=== PATIENT | male | born 1945 | race Caucasian/White ===

== ENCOUNTER 2022-10-27 13:00 | Observation (INO) | payer MEDICARE ==
--- NOTE | 2022-10-27 14:42 | ED ---
General Adult HPI - General Chief complaint: ENT Stated complaint: Pain behind ear last here 10/20 Time Seen by Provider: 10/27/22 13:35 Source: patient Mode of arrival: ambulatory Limitations: no limitations - History of Present Illness Initial comments: This is a 77-year-old male with a past medical history including diabetes and previously diagnosed a mild mastoiditis presented to the emergency department for continued pain in the right side of his head behind his ear. The patient stated that he was given oral antibiotics and did see his primary care physician one week ago without any improvement. The patient stated that he has continued pain and discomfort especially while laying down and try to go to sleep. The patient denied any fevers, chills as well as any lightheadedness or dizziness. The patient was seen in bed comfortably without any acute distress. - Related Data Home Medications Medication Instructions Recorded Confirmed Glimepiride [Amaryl] 1 mg PO AC-BRKFST 09/23/17 10/27/22 Levothyroxine Sodium [Synthroid] 50 mcg PO HS 09/23/17 10/27/22 Nateglinide [Starlix] 120 mg PO AC-LUNCH 09/23/17 10/27/22 Omeprazole 20 mg PO AC-BRKFST 09/23/17 10/27/22 Tamsulosin [Flomax] 0.4 mg PO HS 09/23/17 10/27/22 metFORMIN HCL [Glucophage] 1,000 mg PO AC-BID 09/23/17 10/27/22 Acetaminophen-Codeine 300-30mg 1 tab PO Q6H 10/27/22 10/27/22 [Tylenol w/codeine #3] Aspirin EC [Ecotrin Low Dose] 81 mg PO DAILY 10/27/22 10/27/22 Ciprofloxacin HCl [Cipro] 500 mg PO BID 10/27/22 10/27/22 Glimepiride [Amaryl] 1.5 mg PO AC-SUPPER 10/27/22 10/27/22 Nateglinide [Starlix] 60 - 120 mg PO HS PRN 10/27/22 10/27/22 Simvastatin [Zocor] 40 mg PO DAILY 10/27/22 10/27/22 Previous Rx's Medication Instructions Recorded Isosorbide Mononitrate ER [Imdur] 30 mg PO DAILY 60 Days #60 09/25/17 tab.er.24h Nitroglycerin Sl Tabs [Nitrostat] 0.4 mg SUBLINGUAL Q5M PRN 60 Days 09/25/17 #60 tab Allergies Allergy/AdvReac Type Severity Reaction Status Date / Time No Known Allergies Allergy Verified 10/27/22 15:13 Review of Systems ROS Statement: Those systems with pertinent positive or pertinent negative responses have been documented in the HPI. ROS Other: All systems not noted in ROS Statement are negative. Past Medical History Past Medical History: Coronary Artery Disease (CAD), Chest Pain / Angina, D iabetes Mellitus, GERD/Reflux, GI Bleed, Hyperlipidemia, Hypertension, Prostate Disorder, Thyroid Disorder Additional Past Medical History / Comment(s): hypothyroid,past ulcer when younger, gastritis, anemia-took iron supplements.semi retinal occlusion-had injections, glaucoma "had stents put in eyes" History of Any Multi-Drug Resistant Organisms: None Reported Past Surgical History: Heart Catheterization With Stent, Hernia Repair Additional Past Surgical History / Comment(s): lipoma removal from his back, rt inguinal hernia repair, several heart caths total 2 stents. pt stated "radial approach attempted bilaterally but unable to get thru d/t his vessels being very crooked. groin sites were successfull. ingrid cataracts removed-lens implants, colonoscopy/egd Past Anesthesia/Blood Transfusion Reactions: No Reported Reaction Date of Last Stent Placement:: 2015 Past Psychological History: No Psychological Hx Reported Smoking Status: Never smoker Past Alcohol Use History: None Reported Past Drug Use History: None Reported - Past Family History Father Family Medical History: Cancer, Hypertension, Prostate Disorder Additional Family Medical History / Comment(s): prostate cancer mets to bone Mother Family Medical History: Coronary Artery Disease (CAD), Myocardial Infarction ([place]), Thyroid Disorder Additional Family Medical History / Comment(s): cardiac stents General Exam Limitations: no limitations General appearance: alert, in no apparent distress Head exam: Present: atraumatic, normocephalic, normal inspection Eye exam: Present: normal appearance, PERRL Pupils: Present: normal accommodation ENT exam: Present: normal exam, normal oropharynx, mucous membranes moist, other (Mild tenderness to palpation of the right mastoid process) Neck exam: Present: normal inspection, full ROM Respiratory exam: Present: normal lung sounds bilaterally Cardiovascular Exam: Present: regular rate, normal rhythm, normal heart sounds GI/Abdominal exam: Present: soft, normal bowel sounds Extremities exam: Present: normal inspection, full ROM Back exam: Present: normal inspection, full ROM Neurological exam: Present: alert, oriented X3, CN II-XII intact Psychiatric exam: Present: normal affect, normal mood Skin exam: Present: warm, dry Course Vital Signs 10/27/22 13:05 Temperature 97.6 F Pulse Rate 92 Respiratory 18 Rate Blood Pressure 185/83 O2 Sat by Pulse 99 Oximetry Medical Decision Making - Medical Decision Making Was pt. sent in by a medical professional or institution (, PA, [facility], urgent care, hospital, or care home...) When possible be specific @ -No Did you speak to anyone other than the patient for history (EMS, parent, family, police, friend...)? What history was obtained from this source @ -No Did you review nursing and triage notes (agree or disagree)? Why? @ -I reviewed and agree with nursing and triage notes Were old charts reviewed (outside hosp., previous admission, EMS record, old EKG, old radiological studies, urgent care reports/EKG's, care home records)? Report findings @ -Yes, previous imaging was reviewed Differential Diagnosis (chest pain, altered mental status, abdominal pain women, abdominal pain men, vaginal bleeding, weakness, fever, dyspnea, syncope, headache, dizziness, GI bleed, back pain, seizure, CVA, palpatations, mental health)? @ -Worsening mastoiditis, otitis media, otitis externa EKG interpreted by me (3pts min.). @ -None X-rays interpreted by me (1pt min.). @ -None done CT interpreted by me (1pt min.). @ -Computed tomography scan was obtained and was interpreted by myself showing no mastoiditis. There was a single pacified right mastoid air cell and the inferior most aspect not changed. There is no evidence for osseous erosion or evidence for acute infection. U/S interpreted by me (1pt. min.). @ -None done What testing was considered but not performed or refused? (CT, X-rays, U/S, labs)? Why? @ -None What meds were considered but not given or refused? Why? @ -None Did you discuss the management of the patient with other professionals (professionals i.e. , PA, [facility]TER, lab, RT, psych nurse, social media developer, make up worker, teacher, chief information officer, case folder)? Give summary @ -Yes, admitting physician, Dr. Ly Was smoking cessation discussed for >3mins.? @ -No Was critical care preformed (if so, how long)? @ -No Were there social determinants of health that impacted care today? How? (Homelessness, low income, unemployed, alcoholism, drug addiction, transportation, low edu. Level, literacy, decrease access to med. care, fci, rehab)? @ -No Was there de-escalation of care discussed even if they declined (Discuss DNR or withdrawal of care, Hospice)? DNR status @ -No What co-morbidities impacted this encounter? (DM, HTN, Smoking, COPD, CAD, Cancer, CVA, ARF, Chemo, Hep., AIDS, mental health diagnosis, sleep apnea, morbid obesity)? @ -Diabetes Was patient admitted / discharged? Hospital course, mention meds given and route, prescriptions, significant lab abnormalities, going to OR and other pertinent info. @ -The patient was seen and evaluated emergency department. Physical exam, the patient was resting in bed without any acute distress. Vital signs admission were stable. Laboratory workup was within normal limits. Computed tomography scan was also obtained that did not show any signs of mastoiditis however the patient had physical exam findings of the right mastoid tenderness and denied of any improvement after being on oral antibiotics for 1 week. The patient continued difficulties was sleeping and continued pain and therefore patient physical exam findings, the patient will be placed on IV clindamycin and will be treated for clinical mastoiditis even if the computed tomography scan does not show it currently. The patient's primary care physician was being covered by Dr. Ly and he did see the patient the bedside and stated that he did accept the patient for observation. The patient was told of this plan and was agreeable. The patient was placed in observation in stable condition. Undiagnosed new problem with uncertain prognosis? @ -No Drug Therapy requiring intensive monitoring for toxicity (Heparin, Nitro, Insulin, Cardizem)? @ -No Were any procedures done? @ -No Diagnosis/symptom? @ -Mastoid pain, r/o mastoiditis, failed outpatient management Acute, or Chronic, or Acute on Chronic? @ -Acute on chronic Uncomplicated (without systemic symptoms) or Complicated (systemic symptoms)? @ -Uncomplicated Side effects of treatment? @ -No Exacerbation, Progression, or Severe Exacerbation? @ -No Poses a threat to life or bodily function? How? (Chest pain, [place], [place], pneumonia, PE, COPD, DKA, ARF, appy, cholecystitis, CVA, Diverticulitis, Homicidal, Suicidal, threat to staff... and all critical care pts) @ -Yes, worsening infection can cause possibly erosion an abscess causing continued worsening symptoms - Lab Data Result diagrams: 10/27/22 14:41 Lab Results 10/27/22 Range/Units 14:41 WBC 5.8 (3.8-10.6) k/uL RBC 4.58 (4.30-5.90) m/uL Hgb 12.6 L (13.0-17.5) gm/dL Hct 38.5 L (39.0-53.0) % MCV 84.1 (80.0-100.0) fL MCH 27.4 (25.0-35.0) pg MCHC 32.6 (31.0-37.0) g/dL RDW 13.3 (11.5-15.5) % Plt Count 200 (150-450) k/uL MPV 7.5 Neutrophils % 80 % Lymphocytes % 11 % Monocytes % 6 % Eosinophils % 2 % Basophils % 1 % Neutrophils # 4.6 (1.3-7.7) k/uL Lymphocytes # 0.7 L (1.0-4.8) k/uL Monocytes # 0.4 (0-1.0) k/uL Eosinophils # 0.1 (0-0.7) k/uL Basophils # 0.0 (0-0.2) k/uL Disposition Clinical Impression: Mastoid pain Disposition: ADMITTED IP TO THIS [facility] Condition: Stable Is patient prescribed a controlled substance at d/c from ED?: No Referrals: Abhishek Castillo MD [Primary Care Provider] - 1-2 days Time of Disposition: 14:00 Decision to Admit Reason: Admit from EC Decision Date: 10/27/22 Decision Time: 14:00
[2022-10-27 14:59] LABS: Basophils % (A) 1 %; Eosinophils # (A) 0.1 k/uL (0-0.7); Eosinophils % (A) 2 %; HCT 38.5 % (39.0-53.0); HGB 12.6 gm/dL (13.0-17.5); Lymphocytes # (A) 0.7 k/uL (1.0-4.8); Lymphocytes % (A) 11 %; MCH 27.4 pg (25.0-35.0); MCHC 32.6 g/dL (31.0-37.0); MCV 84.1 fL (80.0-100.0); Mean Platelet Volume 7.5; Monocytes # (A) 0.4 k/uL (0-1.0); Monocytes % (A) 6 %; Neutrophils # (A) 4.6 k/uL (1.3-7.7); Neutrophils % (A) 80 %; Platelet Count 200 k/uL (150-450); RBC 4.58 m/uL (4.30-5.90); RDW 13.3 % (11.5-15.5); WBC 5.8 k/uL (3.8-10.6)
[2022-10-27 15:28] LABS: ALT 29 U/L (4-49); AST 29 U/L (17-59); African American GFR (CKD) >90 (>60 ml/min/1.73 sqM); Albumin 4.3 g/dL (3.5-5.0); Alkaline Phosphatase 57 U/L (38-126); Anion Gap 11 mmol/L; Blood Urea Nitrogen 23 mg/dL (9-20); C Reactive Protein <0.5 mg/dL (<1.0); Calcium 9.1 mg/dL (8.4-10.2); Carbon Dioxide 25 mmol/L (22-30); Chloride 102 mmol/L (98-107); Glucose 157 mg/dL (74-99); Magnesium 1.9 mg/dL (1.6-2.3); Non-African American GFR(CKD) 80 (>60 ml/min/1.73 sqM); Potassium 4.8 mmol/L (3.5-5.1); Sodium 138 mmol/L (137-145); Total Bilirubin 0.3 mg/dL (0.2-1.3); Total Protein 7.2 g/dL (6.3-8.2)
--- NOTE | 2022-10-27 15:31 | CT ---
EXAMINATION TYPE: CT iac w con CT DLP: 467.7 mGycm, Automated exposure control for dose reduction was used. DATE OF EXAM: 10/27/2022 3:11 PM INDICATION: Patient age:Male; 77 years old; Reason for study: Mastoiditis, failed OP; COMPARISON: 10/21/2022 CT TECHNIQUE: Multiple thin axial images were obtained through the temporal bones and internal auditory canals. Additional coronal reformatted images were obtained. No IV contrast was utilized. CT Contrast: Contrast used:100 cc mL of Isovue 300 with IV Contrast, none. FINDINGS: Right Temporal Bone: External Ear: The external auditory canal is unremarkable, The tympanic membrane is present and unrem arkable. Middle Ear: The ossicles demonstrate a normal appearance. Prussak's space is clear and the scutum i s intact. There is no evidence of osseous erosion and the tegmen tympani is intact. Inner Ear: Cochlea, vestibule and semi circular canals are unremarkable. No evidence of carotid julia l dehiscence. Two and a half turns of the cochlea are identified. The vestibular aqueduct is not enl arged. Mastoid Air Cells: Single mastoid air cells most inferior aspect of the right mastoid air cells is op acified and remains similar in morphology to prior on 10/21/2022 no change from prior. The tegmen mast oideum is intact. The aditus ad antrum is clear. Internal Auditory Canal: The internal auditory canal is unremarkable. Left Temporal Bone: External Ear: The external auditory canal is unremarkable, The tympanic membrane is present and unrem arkable. Middle Ear: The ossicles demonstrate a normal appearance. Prussak's space is clear and the scutum i s intact. There is no evidence of osseous erosion and the tegmen tympani is intact. Inner Ear: Cochlea, vestibule and semi circular canals are unremarkable. No evidence of carotid julia l dehiscence. Two and a half turns of the cochlea are identified. The vestibular aqueduct is not enl arged. Mastoid Air Cells: The mastoid air cells are clear. The tegmen mastoideum is intact. The aditus ad an trum is clear. Internal Auditory Canal: The internal auditory canal is unremarkable. Other: Bilateral aphakia. Atherosclerosis of the intracranial vasculature. IMPRESSION: No evidence for mastoiditis. Single opacified right mastoid air cell in the inferior most aspect is n ot changed. No evidence for osseous erosion or evidence for acute infection.
[2022-10-27] MEDS ORDERED: NALOXONE 0.4 MG/ML 1 ML VIAL IV PRN (15:36)
[2022-10-27] MEDS ORDERED: CLINDAMYCIN 600 MG/50 ML-D5W 600 MG in DEXTROSE/WATER 1 50ML.BAG IVPB STA (15:41)
[2022-10-27 16:23] LABS: Erythrocyte Sedimentation Rate 13 mm/hr (0-15)
[2022-10-27 17:32] LABS: Glucose,Whole Blood 115 mg/dL (70-110)
[2022-10-27] MEDS ORDERED: DEXTROSE 50% SYRINGE 50 ML IVP PRN ×2 (18:30)
[2022-10-27] MEDS ORDERED: Acetaminophen-Codeine 300-30mg TAB PO SCH (18:45)
[2022-10-27 21:05] LABS: Glucose,Whole Blood 182 mg/dL (70-110)
[2022-10-27] MEDS: LEVOTHYROXINE 50 MCG TAB PO SCH (21:39)
[2022-10-27] MEDS: TAMSULOSIN 0.4 MG CAP.ER.24H PO SCH (21:39)
[2022-10-27] MEDS: INSULIN ASPART (NovoLOG) 100 UNIT/ML VIAL SQ SCH (21:39)
[2022-10-27] MEDS: CLINDAMYCIN 600 MG in DEXTROSE 5% IN WATER 50 ML IVPB SCH ×2 (22:51)
--- NOTE | 2022-10-27 23:33 | HP ---
HISTORY AND PHYSICAL CHIEF COMPLAINT: Pain behind the right ear. HISTORY OF PRESENT ILLNESS: This is a 77-year-old gentleman with a past medical history of multiple medical problems including diabetes mellitus who also presented to emergency room about a week ago with pain behind the right ear. The patient was empirically diagnosed of mastoiditis, continued on oral antibiotics and because of lack of improvement, the patient came to [facility] and was admitted for further evaluation and treatment. There is no history of any fever, rigors, or chills. PAST MEDICAL HISTORY: Reviewed include diabetes mellitus, GERD, rest of the history and rest of the chart is also reviewed. HOME MEDICATIONS: Reviewed include metformin, doses and rest of medications noted. ALLERGIES: None. FAMILY HISTORY: History of hypertension, prostate cancer in the family. SOCIAL HISTORY: No history of smoking, no history of alcohol. REVIEW OF SYSTEMS: A 14-point review is negative as mentioned. PHYSICAL EXAMINATION: VITAL SIGNS: Pulse is 92, blood pressure 185/83, and respirations 18. HEENT: Conjunctivae normal. NECK: No jugular venous distention. CARDIOVASCULAR: No murmurs. RESPIRATIONS: Diminished at the bases. ABDOMEN: Soft, nontender. NERVOUS SYSTEM: No focal deficits. Some focal tenderness in the right mastoid area present. SKIN: No ulcer, rash, bleeding. JOINTS: No active deforming arthropathy. LABORATORY DATA: WBC 5.8, hemoglobin 12. ASSESSMENT: 1. Pain in the right side because possible acute on chronic mastoiditis with failure of outpatient treatment. 2. Diabetes mellitus, type 2. 3. Hypertension. 4. Hyperlipidemia. 5. Gastroesophageal reflux disease. RECOMMENDATIONS: This 77-year-old gentleman presented with multiple complex medical issues. I would Recommend to continue current management, continue symptomatic treatment, recommend CAT scans, otherwise Infectious Disease and ENT consultations. Resume the home medications once they are confirmed. Monitor blood sugars closely and improve diabetes control, otherwise overall prognosis guarded. Further recommendations to follow. See orders for further details. Symptomatic treatment also will be provided. MMODL / IJN: [id number] /
[2022-10-28 05:43] LABS: Glucose,Whole Blood 122 mg/dL (70-110)
[2022-10-28] MEDS: INSULIN ASPART (NovoLOG) 100 UNIT/ML VIAL SQ SCH ×4 (05:46→20:26)
[2022-10-28] MEDS: ATORVASTATIN 20 MG TAB PO SCH (08:31)
[2022-10-28] MEDS: GLIMEPIRIDE 1 MG TAB PO SCH ×2 (08:31→18:06)
[2022-10-28] MEDS: ASPIRIN 81 MG PO SCH (08:32)
[2022-10-28] MEDS: PANTOPRAZOLE 40 MG TABLET PO SCH (08:32)
[2022-10-28] MEDS: ISOSORBIDE MONONITRATE ER 30 MG TAB.ER.24H PO SCH (08:33)
[2022-10-28] MEDS: CLINDAMYCIN 600 MG in DEXTROSE 5% IN WATER 50 ML IVPB SCH ×4 (08:37→16:24)
[2022-10-28] MEDS: KETOROLAC 15 MG/ML 1 ML VIAL IVP PRN (10:25)
[2022-10-28 12:19] LABS: Glucose,Whole Blood 123 mg/dL (70-110)
[2022-10-28] MEDS ORDERED: NITROGLYCERIN SL TABS 0.4 MG TAB SUBLINGUAL PRN (12:39)
[2022-10-28] MEDS ORDERED: NON FORMULARY DRUG (Nateglinide 120 MG Tab) PO PRN (12:39)
[2022-10-28 16:53] LABS: Glucose,Whole Blood 156 mg/dL (70-110)
--- NOTE | 2022-10-28 16:56 | P.CNNES ---
History of Present Illness Consult date: 10/28/22 Requesting physician: Dleisa Kebede Reason for Consult: right mastoid pain, headache History of Present Illness: This is a 77-year-old gentleman with previous history of diabetes, CAD s/p stent who presented emergency department because of pain over the right mastoid region and occipital region. Patient stated that he's been having symptoms for the past 2 weeks and he's been having pain over the right mastoid occipital region and feels worse when supine position but better with the standing. He denies any fevers, any trauma to the head, any visual disturbance,. He had rare vomiting episode but denies any nausea. Denies any visual disturbance, focal weakness difficulty swallowing. Denies any recent fever. He feels sometimes the pain radiates over the right frontal area. Denies any photophobia photopho brent. He stated that he received antibiotic for the past 1 week by his primary care without any alleviation. Denies any dizziness. Workup during his hospital visit consisted of: She is afebrile so far White Blood cells 5.8 thousand. CR{ <0.5 CT IAC w con: It is reported as no evidence for mastoiditis. Single opacified right mastoid air cells and inferior most aspect is not changed. No evidence for osseous erosion or evidence for acute infection. Review of Systems Review of system: The 12 point system was reviewed and apparent positive and negative per HPI. Past Medical History Past Medical History: Coronary Artery Disease (CAD), Chest Pain / Angina, Diabetes Mellitus, GERD/Reflux, GI Bleed, Hyperlipidemia, Hypertension, Prostate Disorder, Thyroid Disorder Additional Past Medical History / Comment(s): hypothyroid,past ulcer when younger, gastritis, anemia-took iron supplements.semi retinal occlusion-had injections, glaucoma "had stents put in eyes" History of Any Multi-Drug Resistant Organisms: None Reported Past Surgical History: Heart Catheterization With Stent, Hernia Repair Additional Past Surgical History / Comment(s): lipoma removal from his back, rt inguinal hernia repair, several heart caths total 2 stents. pt stated "radial approach attempted bilaterally but unable to get thru d/t his vessels being very crooked. groin sites were successfull. ingrid cataracts removed-lens implants, colonoscopy/egd Past Anesthesia/Blood Transfusion Reactions: No Reported Reaction Date of Last Stent Placement:: 2015 Past Psychological History: No Psychological Hx Reported Additional Psychological History / Comment(s): pt is independant,lives with in 2 story home that has 2 porch steps. no pets. no home care services recieved. has a glucometer. Smoking Status: Never smoker Past Alcohol Use History: None Reported Past Drug Use History: None Reported - Past Family History Father Family Medical History: Cancer, Hypertension, Prostate Disorder Additional Family Medical History / Comment(s): prostate cancer mets to bone Mother Family Medical History: Coronary Artery Disease (CAD), Myocardial Infarction ([place]), Thyroid Disorder Additional Family Medical History / Comment(s): cardiac stents Medications and Allergies Home Medications Medication Instructions Recorded Confirmed Type Glimepiride [Amaryl] 1 mg PO AC-BRKFST 09/23/17 10/27/22 History Levothyroxine Sodium [Synthroid] 50 mcg PO HS 09/23/17 10/27/22 History Nateglinide [Starlix] 120 mg PO AC-LUNCH 09/23/17 10/27/22 History Omeprazole 20 mg PO AC-BRKFST 09/23/17 10/27/22 History Tamsulosin [Flomax] 0.4 mg PO HS 09/23/17 10/27/22 History metFORMIN HCL [Glucophage] 1,000 mg PO AC-BID 09/23/17 10/27/22 History Isosorbide Mononitrate ER [Imdur] 30 mg PO DAILY 60 Days #60 09/25/17 10/27/22 Rx tab.er.24h Nitroglycerin Sl Tabs [Nitrostat] 0.4 mg SUBLINGUAL Q5M PRN 60 Days 09/25/17 10/27/22 Rx #60 tab Acetaminophen-Codeine 300-30mg 1 tab PO Q6H 10/27/22 10/27/22 History [Tylenol w/codeine #3] Aspirin EC [Ecotrin Low Dose] 81 mg PO DAILY 10/27/22 10/27/22 History Ciprofloxacin HCl [Cipro] 500 mg PO BID 10/27/22 10/27/22 History Glimepiride [Amaryl] 1.5 mg PO AC-SUPPER 10/27/22 10/27/22 History Nateglinide [Starlix] 60 - 120 mg PO HS PRN 10/27/22 10/27/22 History Simvastatin [Zocor] 40 mg PO DAILY 10/27/22 10/27/22 History Allergies Allergy/AdvReac Type Severity Reaction Status Date / Time No Known Allergies Allergy Verified 10/27/22 15:13 Physical Examination - Vital Signs Vital Signs: Vital Signs Temp Pulse Pulse Resp BP BP Pulse Ox 10/28/22 14:55 97.4 F L 65 16 137/68 99 10/28/22 07:12 97.6 F 65 18 122/68 100 10/28/22 02:57 97.7 F 77 16 134/77 97 10/27/22 20:00 67 16 10/27/22 19:00 97.6 F 67 16 164/69 99 10/27/22 17:18 98.2 F 71 16 143/67 96 10/27/22 16:39 78 18 140/73 96 Intake and Output 10/28/22 10/28/22 10/28/22 06:59 14:59 22:59 Intake Total 100 658 Balance 100 658 Intake: Intake, IV Titration 100 Amount Clindamycin 600 mg/50 ml- 100 D5w 600 mg In Dextrose/ Water 1 50ml.bag @ 50 mls /hr IVPB ONCE STA Rx#: [id number] Oral 658 Other: # Voids 2 GENERAL: The patient is lying in bed and is not in acute distress. HENT: Palpation over the right occipital/mastoid or frontal or ear did not evoke pain. CHEST: The heart rate is regular rate rhythm. No murmurs to auscultation. LUNG: Clear to auscultation bilaterally no wheezing noted throughout. Not labored breathing. ABDOMEN/GI: Bowel sounds present in all 4 quadrants. No tenderness to palpation throughout. NEUROLOGICAL: Higher mental function: The patient is awake, alert, oriented to self, place and time. Patient is following commands. No aphasia and no neglect. Cranial nerves: The pupils are round, equal and reactive to light and accommodation. Visual [place] are full to confrontation throughout. Extraocular movement is intact no nystagmus is noted. Facial sensation is normal to touch throughout. The facial strength is normal throughout. Hearing is mildly decreased over the left while moderately decreased over the right to hand rub. Tongue is midline and moved [id number] without any difficulty. No dysarthria is noted. Shoulder shrug is normal bilaterally. Motor: Gait is normal. The strength is 5 over 5 throughout. Normal tone and bulk. Cerebellum: Normal finger to nose bilaterally. Sensation: Sensation is normal to touch throughout. Reflexes (right/left):2+ throughout Plantars are downgoing bilaterally. Results - Laboratory Findings CBC and BMP: 10/27/22 14:41 10/27/22 14:41 Abnormal Lab Findings: Abnormal Labs 10/27/22 10/27/22 10/27/22 14:41 14:41 17:30 Hgb 12.6 L Hct 38.5 L Lymphocytes # 0.7 L BUN 23 H Glucose 157 H POC Glucose (mg/dL) 115 H 10/27/22 10/28/22 10/28/22 21:00 05:41 12:17 Hgb Hct Lymphocytes # BUN Glucose POC Glucose (mg/dL) 182 H 122 H 123 H Assessment and Plan Assessment: Cephalgia without any focal deficit. But complaining of right mastoid/occipital region with alleviation with upright position but worse with supine position. Unsure exact cause but possible mastoiditis (opacified on CT on right). Rule out any brain lesion. Diabetes Plan: I ordered MRI of the brain and IAC with and without to rule out any central cause. I'm team has consulted ID as well as ENT. I'll defer the rest of the medical management to primary team The plan is discussed with patient and his who is at bedside. Thank you for the consultation Time with Patient: Greater than 30
[2022-10-28] MEDS: metFORMIN 500 MG TAB PO SCH (18:07)
[2022-10-28 20:23] LABS: Glucose,Whole Blood 150 mg/dL (70-110)
[2022-10-28] MEDS: LEVOTHYROXINE 50 MCG TAB PO SCH (20:25)
[2022-10-28] MEDS: TAMSULOSIN 0.4 MG CAP.ER.24H PO SCH (20:25)
--- NOTE | 2022-10-28 21:26 | P.CONS ---
History of Present Illness - Reason for Consult Consult date: 10/28/22 Questionable mastoid infection Requesting physician: Delisa Kebede - Chief Complaint Pain to the right side of the neck behind the ear x weeks - History of Present Illness Patient is a 77-year male with a past medical history significant for hypertension hyperlipidemia hypothyroidism GERD coronary disease and diabetes mellitus initially presented to the ER on 10/21/2022 with complaint of pain behind the right ear with associated headache bending from his right ear close to the forehead there were no clear history of any changes in the hearing any drainage from the ear or tinnitus patient did have a CT of the brain and maxillofacial CT did not show significant abnormality patient apparently was diagnosed with a mastoiditis he was advised Tylenol 3 and subsequently discharged home patient now presenting back to the hospital yesterday afternoon with concern for persistent pain to the right side of the neck behind the ear area patient denies any history of any trauma denies any swelling or redness and no drainage from the ear and no URI symptoms patient denies having any fever or any chills on presentation to the hospital the patient was afebrile and no fever has been recorded subsequently patient did have a normal white count sed rate is 13 creatinine was normal electrolytes are normal CRP is less than 0.5 patient did have internal auditory canal CT no evidence for mastoiditis single opacified right mastoid air cells in the field more suspected large change in the evidence of osseous erosion or evidence for acute infection patient was star flavia on Rocephin and clindamycin infectious disease was consulted for further management of antibiotic therapy Review of Systems Positive point has been mentioned in the HPI rest of the systems are negative Past Medical History Past Medical History: Coronary Artery Disease (CAD), Chest Pain / Angina, Diabetes Mellitus, GERD/Reflux, GI Bleed, Hyperlipidemia, Hypertension, Prostate Disorder, Thyroid Disorder Additional Past Medical History / Comment(s): hypothyroid,past ulcer when younger, gastritis, anemia-took iron supplements.semi retinal occlusion-had injections, glaucoma "had stents put in eyes" History of Any Multi-Drug Resistant Organisms: None Reported Past Surgical History: Heart Catheterization With Stent, Hernia Repair Additional Past Surgical History / Comment(s): lipoma removal from his back, rt inguinal hernia repair, several heart caths total 2 stents. pt stated "radial approach attempted bilaterally but unable to get thru d/t his vessels being very crooked. groin sites were successfull. ingrid cataracts removed-lens implants, colonoscopy/egd Past Anesthesia/Blood Transfusion Reactions: No Reported Reaction Date of Last Stent Placement:: 2015 Past Psychological History: No Psychological Hx Reported Additional Psychological History / Comment(s): pt is independant,lives with in 2 story home that has 2 porch steps. no pets. no home care services recieved. has a glucometer. Smoking Status: Never smoker Past Alcohol Use History: None Reported Past Drug Use History: None Reported - Past Family History Father Family Medical History: Cancer, Hypertension, Prostate Disorder Additional Family Medical History / Comment(s): prostate cancer mets to bone Mother Family Medical History: Coronary Artery Disease (CAD), Myocardial Infarction ([place]), Thyroid Disorder Additional Family Medical History / Comment(s): cardiac stents Medications and Allergies Home Medications Medication Instructions Recorded Confirmed Type Glimepiride [Amaryl] 1 mg PO AC-BRKFST 09/23/17 10/27/22 History Levothyroxine Sodium [Synthroid] 50 mcg PO HS 09/23/17 10/27/22 History Nateglinide [Starlix] 120 mg PO AC-LUNCH 09/23/17 10/27/22 History Omeprazole 20 mg PO AC-BRKFST 09/23/17 10/27/22 History Tamsulosin [Flomax] 0.4 mg PO HS 09/23/17 10/27/22 History metFORMIN HCL [Glucophage] 1,000 mg PO AC-BID 09/23/17 10/27/22 History Isosorbide Mononitrate ER [Imdur] 30 mg PO DAILY 60 Days #60 09/25/17 10/27/22 Rx tab.er.24h Nitroglycerin Sl Tabs [Nitrostat] 0.4 mg SUBLINGUAL Q5M PRN 60 Days 09/25/17 10/27/22 Rx #60 tab Acetaminophen-Codeine 300-30mg 1 tab PO Q6H 10/27/22 10/27/22 History [Tylenol w/codeine #3] Aspirin EC [Ecotrin Low Dose] 81 mg PO DAILY 10/27/22 10/27/22 History Glimepiride [Amaryl] 1.5 mg PO AC-SUPPER 10/27/22 10/27/22 History Nateglinide [Starlix] 60 - 120 mg PO HS PRN 10/27/22 10/27/22 History Simvastatin [Zocor] 40 mg PO DAILY 10/27/22 10/27/22 History Naproxen [Naprosyn] 250 mg PO TID #15 tab 10/30/22 Rx predniSONE 0 mg PO DIRECTED #22 tab 10/30/22 Rx Allergies Allergy/AdvReac Type Severity Reaction Status Date / Time No Known Allergies Allergy Verified 10/27/22 15:13 Physical Exam Vitals: Vital Signs Temp Pulse Pulse Resp BP BP Pulse Ox 10/28/22 07:12 97.6 F 65 18 122/68 100 10/28/22 02:57 97.7 F 77 16 134/77 97 10/27/22 20:00 67 16 10/27/22 19:00 97.6 F 67 16 164/69 99 10/27/22 17:18 98.2 F 71 16 143/67 96 10/27/22 16:39 78 18 140/73 96 10/27/22 13:05 97.6 F 92 18 185/83 99 Intake and Output 10/27/22 10/28/22 10/28/22 22:59 06:59 14:59 Intake Total 780 100 540 Balance 780 100 540 Intake: Intake, IV Titration 100 Amount Clindamycin 600 mg/50 ml- 100 D5w 600 mg In Dextrose/ Water 1 50ml.bag @ 50 mls /hr IVPB ONCE STA Rx#: [id number] Oral 780 540 Other: Voiding Method Toilet Weight 69.853 kg GENERAL DESCRIPTION: Elderly male lying in bed, no distress. No tachypnea or accessory muscle of respiration use. HEENT: Shows Pallor , no scleral icterus. Oral mucous membrane is dry. No swelling redness or tenderness was noticed to the right mastoid area NECK: Trachea central, no thyromegaly. LUNGS: Unlabored breathing. Clear to auscultation anteriorly. No wheeze or crackle. HEART: S1, S2, regular rate and rhythm. No loud murmur ABDOMEN: Soft, no tenderness , guarding or rigidity, no organomegaly EXTREMITIES: No edema of feet. SKIN: No rash, no masses palpable. NEUROLOGICAL: The patient is awake, alert, oriented x3, mood and affect normal. Results CBC & Chem 7: 10/27/22 14:41 10/27/22 14:41 Labs: Abnormal Lab Results - Last 24 Hours (Table) 10/27/22 10/27/22 10/27/22 Range/Units 14:41 14:41 17:30 Hgb 12.6 L (13.0-17.5) gm/dL Hct 38.5 L (39.0-53.0) % Lymphocytes # 0.7 L (1.0-4.8) k/uL BUN 23 H (9-20) mg/dL Glucose 157 H (74-99) mg/dL POC Glucose (mg/dL) 115 H (70-110) mg/dL 10/27/22 10/28/22 Range/Units 21:00 05:41 Hgb (13.0-17.5) gm/dL Hct (39.0-53.0) % Lymphocytes # (1.0-4.8) k/uL BUN (9-20) mg/dL Glucose (74-99) mg/dL POC Glucose (mg/dL) 182 H 122 H (70-110) mg/dL Assessment and Plan (1) Mastoid pain Status: Acute Code(s): H92.09 - OTALGIA, UNSPECIFIED EAR SNOMED Code(s): 202481235 Plan: 1patient presented to hospital with pain mostly to the right posterior aur icular and occipital area symptom has been going on for more than 2 weeks now without any history of any trauma patient did not have any tenderness he did have a CT of the internal auditory canal did not show any evidence of acute infection/mastoiditis patient with no fever no white count did have a normal CRP and sed rate of we will make infection etiology to be less likely and need to rule out other etiology of cephalgia 2-antibiotics can be safely discontinued 3-await ENT evaluation We will follow on clinical condition and cultures to further adjust medication if needed Thank you for this consultation we will follow the patient along with you Time with Patient: Greater than 30
[2022-10-29] MEDS: KETOROLAC 15 MG/ML 1 ML VIAL IVP PRN ×3 (00:04→21:16)
[2022-10-29] MEDS: Acetaminophen-Codeine 300-30mg TAB PO PRN ×2 (00:04→23:07)
[2022-10-29] MEDS: CLINDAMYCIN 600 MG in DEXTROSE 5% IN WATER 50 ML IVPB SCH ×4 (00:05→09:45)
[2022-10-29] MEDS: metFORMIN 500 MG TAB PO SCH ×2 (05:51→18:13)
[2022-10-29] MEDS: GLIMEPIRIDE 1 MG TAB PO SCH ×2 (05:56→18:05)
[2022-10-29] MEDS: PANTOPRAZOLE 40 MG TABLET PO SCH (05:56)
[2022-10-29 05:59] LABS: Glucose,Whole Blood 133 mg/dL (70-110)
[2022-10-29] MEDS: INSULIN ASPART (NovoLOG) 100 UNIT/ML VIAL SQ SCH ×4 (05:59→21:12)
[2022-10-29 06:38] VITALS: RESP 18
[2022-10-29] MEDS: ISOSORBIDE MONONITRATE ER 30 MG TAB.ER.24H PO SCH (08:41)
[2022-10-29] MEDS: ATORVASTATIN 20 MG TAB PO SCH (08:41)
[2022-10-29] MEDS: ASPIRIN 81 MG PO SCH (08:41)
[2022-10-29] MEDS ORDERED: NAPROXEN 250 MG TAB PO STA (10:02)
[2022-10-29] MEDS ORDERED: predniSONE 20 MG TAB PO STA (10:07)
[2022-10-29] MEDS: FAMOTIDINE 20 MG TAB PO SCH ×2 (11:10→21:12)
[2022-10-29] MEDS: ENOXAPARIN 40 MG/0.4 ML SYRINGE SQ SCH (11:11)
--- NOTE | 2022-10-29 12:07 | P.PN ---
Subjective Progress Note Date: 10/29/22 I am follow up seeing the patient and he feels about the same today compared to yesterday. Eyes of any new neurological issues. Denies any ringing in the ears or any new hearing loss. Objective - Vital Signs Vital signs: Vital Signs Temp 97.7 F 10/29/22 06:37 Pulse 57 L 10/29/22 06:37 Resp 18 10/29/22 06:37 BP 161/89 10/29/22 06:37 Pulse Ox 99 10/29/22 06:37 FiO2 Intake & Output 10/28/22 10/29/22 10/29/22 18:59 06:59 18:59 Intake Total 776 780 Balance 776 780 Intake: Oral 776 780 Other: Voiding Method Toilet # Voids 2 1 - Exam GENERAL: The patient is lying in bed and is not in acute distress. NEUROLOGICAL: Higher mental function: The patient is awake, alert, oriented to self, place and time. Patient is following commands. No aphasia and no neglect. Cranial nerves: The pupils are round, equal and reactive to light and accommodation. Visual [place] are full to confrontation throughout. Extraocular movement is intact no nystagmus is noted. Facial sensation is normal to touch throughout. The facial strength is normal throughout. Hearing is mildly decreased over the left while moderately decreased over the right to hand rub. Tongue is midline and moved [id number] without any difficulty. No dysarthria is noted. Shoulder shrug is normal bilaterally. Motor: The strength is 5 over 5 throughout. Normal tone and bulk. Cerebellum: Normal finger to nose bilaterally. Sensation: Sensation is normal to touch throughout. Reflexes (right/left):2+ throughout Plantars are downgoing bilaterally. Workup during his hospital visit consisted of: She is afebrile so far White Blood cells 5.8 thousand. CRP <0.5 CT IAC w con: It is reported as no evidence for mastoiditis. Single opacified right mastoid air cells and inferior most aspect is not changed. No evidence for osseous erosion or evidence for acute infection. - Labs CBC & Chem 7: 10/27/22 14:41 10/27/22 14:41 Labs: Abnormal Lab Results - Last 24 Hours (Table) 10/28/22 10/28/22 10/28/22 Range/Units 12:17 16:52 20:22 POC Glucose (mg/dL) 123 H 156 H 150 H (70-110) mg/dL 10/29/22 Range/Units 05:57 POC Glucose (mg/dL) 133 H (70-110) mg/dL Assessment and Plan Assessment: Cephalgia without any focal deficit. But complaining of right mastoid/occipital region with alleviation with upright position but worse with supine position. Unsure exact cause but possible mastoiditis (opacified on CT on right). Rule out any brain lesion. Diabetes Plan: Pending MRI of the brain and IAC with and without to rule out any central cause. Primary team has consulted ID as well as ENT. I'll defer the rest of the medical management to primary team The plan is discussed with patient. Time with Patient: Less than 30
[2022-10-29 12:23] LABS: Glucose,Whole Blood 162 mg/dL (70-110)
[2022-10-29] MEDS ORDERED: NATEGLINIDE 120 MG PO SCH (12:30)
--- NOTE | 2022-10-29 13:11 | PN ---
PROGRESS NOTE DATE OF SERVICE: 10/28/2022 SUBJECTIVE: This is a 77-year-old gentleman who was admitted with right mastoid pain, also complaining of pain radiating to the forehead also. The internal auditory canal CT showed only evidence of mild mastoiditis. There is no history of any fever, rigors, or chills. OBJECTIVE: VITAL SIGNS: Pulse 65, blood pressure 120/60, respirations 18. CHEST: Clear to auscultation. ABDOMEN: Soft. NERVOUS SYSTEM: Nonfocal. LABORATORY DATA: Accu-Cheks noted. ASSESSMENT: 1. Pain in the right side, right mastoid area because of possible acute on chronic mastoiditis with failure of outpatient treatment. 2. Hemicrania, rule out migraine. 3. Diabetes mellitus type 2. 4. Hypertension. 5. Hyperlipidemia. 6. History of gastroesophageal reflux disease. RECOMMENDATIONS: Recommended to continue current management, continue symptomatic treatment. We will obtain Infectious Disease and neurology consultations. The patient will require more than 2 night stay in the hospital because of the multiple complex medical issues and diabetic condition, so I would recommend full admit for continued evaluation and treatment. The patient is on empiric IV antibiotics. Cultures have been obtained. MMODL / IJN: [id number] /
--- NOTE | 2022-10-29 14:18 | P.PN ---
Subjective Progress Note Date: 10/29/22 Principal diagnosis: Questionable mastoiditis Patient is a 77-year male with a past medical history significant for hypertension hyperlipidemia hypothyroidism GERD coronary disease and diabetes mellitus , presented to the hospital with pain to the right side of the neck behind the ear and there was question of possible mastoiditis. On today's evaluation that is 10/29/2022, the patient denies having any fever or any case, patient mentioned having pain to the neck area especially at night when he lies down patient denies having any problem with hearing or any drainage from the right ear and no URI symptoms no chest pain shortness of breath or cough Objective - Vital Signs Vital signs: Vital Signs Temp 97.7 F 10/29/22 06:37 Pulse 57 L 10/29/22 06:37 Resp 18 10/29/22 06:37 BP 161/89 10/29/22 06:37 Pulse Ox 99 10/29/22 06:37 FiO2 Intake & Output 10/28/22 10/29/22 10/29/22 18:59 06:59 18:59 Intake Total 776 780 Balance 776 780 Intake: Oral 776 780 Other: Voiding Method Toilet # Voids 2 1 - Exam GENERAL DESCRIPTION: An elderly male lying in bed in no distress RESPIRATORY SYSTEM: Unlabored breathing , decreased breath sounds at bases HEART: S1 S2 regular rate and rhythm , ABDOMEN: Soft , no tenderness EXTREMITIES: No edema feet - Labs CBC & Chem 7: 10/27/22 14:41 10/27/22 14:41 Labs: Abnormal Lab Results - Last 24 Hours (Table) 10/28/22 10/28/22 10/28/22 Range/Units 12:17 16:52 20:22 POC Glucose (mg/dL) 123 H 156 H 150 H (70-110) mg/dL 10/29/22 Range/Units 05:57 POC Glucose (mg/dL) 133 H (70-110) mg/dL Assessment and Plan (1) Mastoid pain Current Visit: Yes Status: Acute Code(s): H92.09 - OTALGIA, UNSPECIFIED EAR SNOMED Code(s): 465226019 Plan: 1patient presented to hospital with pain mostly to the right posterior auricular and occipital area symptom has been going on for more than 2 weeks now without any history of any trauma patient did not have any tenderness he did have a CT of the internal auditory canal did not show any evidence of acute infection/mastoiditis patient with no fever no white count did have a normal CRP and sed rate of we will make infection etiology to be less likely and need to rule out other etiology of cephalgia 2-We will discontinue Rocephin and clindamycin monitor the patient closely off antibiotic therapy 3-await ENT evaluation and await MRI ordered by neurology Time with Patient: Less than 30
[2022-10-29] MEDS: NAPROXEN 250 MG TAB PO SCH ×2 (15:05→21:12)
[2022-10-29 17:40] LABS: Glucose,Whole Blood 232 mg/dL (70-110)
--- NOTE | 2022-10-29 18:12 | P.PN ---
Progress Note - Text Progress Note Date: 10/29/22 Presenting complaint: Right-sided upper neck and headache Hospital course: This is a 77-year-old male with a past medical history including diabetes and previously diagnosed a mild mastoiditis presented to the emergency department for continued pain in the right side of his head behind his ear. The patient stated that he was given oral antibiotics and did see his primary care physician one week ago without any improvement. The patient stated that he has continued pain and discomfort especially while laying down and try to go to sleep. The patient denied any fevers, chills as well as any lightheadedness or dizziness. The patient was seen in bed comfortably without any acute distress. 10/29/2022: I assumed care of the patient today from [facility]. Patient is complaining pain at the hairline upper part of the right side of the neck. Describes the pain to be worse when lying down and then it extends and radiates to the above the ear and lower down. It is much worse when he lies down. Better with pain medications. No fever no chills. Radiological studies did not show any mastoiditis. Had been on antibiotics. To me this looks more like a pinched nerve as it is very positional. Patient's had his x-rays done showing evidence of cervical arthritis. I will give patient a course of anti- inflammatory form of NSAIDs and prednisone. expect to have feeling better. Neurologic also working up the patient. Active Medications Acetaminophen/Codeine Phosphate (Acetaminophen-Codeine 300-30mg Tab) 1 each PO Q6H PRN PRN Reason: Mild Pain (Scale 1 to 3) Last Admin: 10/29/22 00:04 Dose: 1 each Aspirin (Aspirin 81 Mg) 81 mg PO DAILY [facility] Last Admin: 10/29/22 08:41 Dose: 81 mg Atorvastatin Calcium (Atorvastatin 20 Mg Tab) 20 mg PO DAILY [facility] Last Admin: 10/29/22 08:41 Dose: 20 mg Dextrose/Water (Dextrose 50% Syringe 50 Ml) 25 ml IVP PER PROTOCOL PRN; Protocol PRN Reason: Hypoglycemia Dextrose/Water (Dextrose 50% Syringe 50 Ml) 50 ml IVP PER PROTOCOL PRN; Protocol PRN Reason: Hypoglycemia Enoxaparin Sodium (Enoxaparin 40 Mg/0.4 Ml Syringe) 40 mg SQ DAILY [facility] Last Admin: 10/29/22 11:11 Dose: 40 mg Famotidine (Famotidine 20 Mg Tab) 20 mg PO BID [facility] Last Admin: 10/29/22 11:10 Dose: 20 mg Glimepiride (Glimepiride 1 Mg Tab) 1 mg PO AC-BRKFST [facility] Last Admin: 10/29/22 05:56 Dose: 1 mg Glimepiride (Glimepiride 1 Mg Tab) 1.5 mg PO AC-SUPPER [facility] Last Admin: 10/28/22 18:06 Dose: 1.5 mg Insulin Aspart (Insulin Aspart (Novolog) 100 Unit/Ml Vial) 0 unit SQ [facility]; Protocol Last Admin: 10/29/22 12:30 Dose: 1 unit Isosorbide Mononitrate (Isosorbide Mononitrate Er 30 Mg Tab.Er.24h) 30 mg PO DAILY [facility] Last Admin: 10/29/22 08:41 Dose: 30 mg Ketorolac Tromethamine (Ketorolac 15 Mg/Ml 1 Ml Vial) 15 mg IVP Q6HR PRN PRN Reason: Pain Stop: 10/30/22 18:27 Last Admin: 10/29/22 15:05 Dose: 15 mg Levothyroxine Sodium (Levothyroxine 50 Mcg Tab) 50 mcg PO HS [facility] Last Admin: 10/28/22 20:25 Dose: 50 mcg Metformin HCl (Metformin 500 Mg Tab) 1,000 mg PO AC-BID [facility] Last Admin: 10/29/22 05:51 Dose: Not Given Naloxone HCl (Naloxone 0.4 Mg/Ml 1 Ml Vial) 0.2 mg IV Q2M PRN PRN Reason: Opioid Reversal Naproxen (Naproxen 250 Mg Tab) 250 mg PO TID [facility] Last Admin: 10/29/22 15:05 Dose: 250 mg Nitroglycerin (Nitroglycerin Sl Tabs 0.4 Mg Tab) 0.4 mg SUBLINGUAL Q5M PRN PRN Reason: Chest Pain (Nateglinide 120 Mg (Tab)) 120 mg PO AC-LUNCH [facility] Last Admin: 10/29/22 13:06 Dose: Not Given Non-Formulary Medication (Nateglinide) 60 mg PO HS PRN PRN Reason: Blood Sugar - High Pantoprazole Sodium ([facility]op[facility]ole 40 Mg Tablet) [facility] Last Admin: 10/29/22 05:56 Dose: 40 mg Prednisone (Prednisone 20 Mg Tab) 40 mg PO DAILY [facility] Tamsulosin HCl (Tamsulosin 0.4 Mg Cap.Er.24h) 0.4 mg PO HS [facility] Last Admin: 10/28/22 20:25 Dose: 0.4 mg On examination: VITAL SIGNS: [97.7, 57, 18, 161/89, 99% room air] GENERAL APPEARANCE: Laying up a chair, comfortable. HEENT: Normal external appearance of nose and ear. Oral cavity normal. Point tenderness on the extreme right of the hairline at the occipital line, just above the cervical spine. EYES: Pupils equal. Conjunctiva normal. NECK: JVD not raised. Mass not palpable. RESPIRATORY: Respiratory effort normal. Lungs clear to auscultation. CARDIOVASCULAR: First and second sounds normal. No edema. ABDOMEN: Soft. Liver and spleen not palpable. No tenderness. No mass palpable. PSYCHIATRY: Alert and oriented x3. Mood and affect normal. INVESTIGATIONS, reviewed in the clinical context: Computed tomography scan internal auditory canal with contrast: no Evidence of mastoiditis. Single opacified right mastoid air cell-unchanged Assessment plan: -Right occipital hairline localized pain with radiation especially positional laying down. At night. This appears to be nerve pinching probably from upper cervical spine/lesser occipital - C2/C3. Do not see any clinical evidence of infection. Given that pain is purely positional and localized. No fever no chills. We will try a short course of NS AIDs and prednisone. -CAD with stent Aspirin. Zocor. Imdur ER -GERD Omeprazole -Diabetes mellitus type 2 Glucophage, Amaryl. Follow sliding scale -Hyperlipidemia Zocor -BPH Flomax -Hypothyroid Levothyroxine 50 g . Discussed with patient. Try NSAIDs and prednisone. Neurological workup in place. We'll look for significant recovery by tomorrow. Increase activity
--- NOTE | 2022-10-29 19:43 | XR ---
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 There is loss of disc height C6-7. Spondylosis is prese nt. Posterior spinal lamellar line is intact. Vertebral body alignment appears preserved through flex ion and extension views. Facet degenerative changes are present. There is foraminal stenosis C6-7 on the right. C6-7 foraminal narrowing is present on the left. Additional C3-4 foraminal stenosis is pre sent on the left IMPRESSION: 1. Degenerative disc changes C6-7. Bilateral severe foraminal stenosis is present at this level. Marcel e milder foraminal narrowing is present on the left at C3-4.
[2022-10-29 20:44] LABS: Glucose,Whole Blood 252 mg/dL (70-110)
[2022-10-29] MEDS: LEVOTHYROXINE 50 MCG TAB PO SCH (21:10)
[2022-10-29] MEDS: TAMSULOSIN 0.4 MG CAP.ER.24H PO SCH (21:12)
[2022-10-30 06:38] LABS: Glucose,Whole Blood 104 mg/dL (70-110)
[2022-10-30] MEDS: INSULIN ASPART (NovoLOG) 100 UNIT/ML VIAL SQ SCH (06:40)
[2022-10-30] MEDS: metFORMIN 500 MG TAB PO SCH (06:40)
[2022-10-30] MEDS: PANTOPRAZOLE 40 MG TABLET PO SCH (06:45)
[2022-10-30 08:18] VITALS: BP 166/81; PULSE 61; TEMP 97.6
[2022-10-30] MEDS: GLIMEPIRIDE 1 MG TAB PO SCH (08:53)
[2022-10-30] MEDS: ASPIRIN 81 MG PO SCH (08:53)
[2022-10-30] MEDS: FAMOTIDINE 20 MG TAB PO SCH (08:53)
[2022-10-30] MEDS: ATORVASTATIN 20 MG TAB PO SCH (08:54)
[2022-10-30] MEDS: ISOSORBIDE MONONITRATE ER 30 MG TAB.ER.24H PO SCH (08:54)
[2022-10-30] MEDS: KETOROLAC 15 MG/ML 1 ML VIAL IVP PRN (08:59)
[2022-10-30] MEDS ORDERED: predniSONE 20 MG TAB PO SCH (09:00)
[2022-10-30] MEDS: ENOXAPARIN 40 MG/0.4 ML SYRINGE SQ SCH (10:23)
[2022-10-30] MEDS: NAPROXEN 250 MG TAB PO SCH (10:24)
--- NOTE | 2022-10-30 11:10 | MR ---
EXAMINATION TYPE: MR brain and iac wo/w con DATE OF EXAM: 10/30/2022 COMPARISON: CT IAC the third 19/03/2023 HISTORY: Right sided headache with mastoid pain. TECHNIQUE: Multiplanar, multisequence images of the brain and brainstem along with internal auditory canals are all performed without and with IV contrast, utilizing 7 mL intravenous Gadavist . FINDINGS: Diffusion weighted images demonstrate no evidence of a recent infarct or other diffusion ab normality. Mild ventricular and sulcal prominence. Scattered areas of T2 hyperintensity are seen thro ughout the white matter bilaterally. Lesions are nonspecific in appearance and distribution. Roughly 40 scattered lesions are seen. Midline structures demonstrate normal morphology. The craniocervical junction appears within normal limits. Post contrast images demonstrate no abnormal enhancement. The dural venous sinuses appear pa tent. The visualized sinuses are clear and the globes are intact. No suspicious fluid signal in the bilateral mastoid air cells. Vestibulocochlear complexes are symmet parisa and felt within normal limits. There is no abnormal enhancing cerebellopontine angle mass identif ied bilaterally. IMPRESSION: 1. No suspicious right-sided cerebellopontine angle enhancing mass to account for patient's symptoms. 2. There is mild diffuse cerebral atrophy and moderate probable chronic small vessel ischemic change noted. No abnormal enhancement is seen.
--- NOTE | 2022-10-30 13:16 | P.PN ---
Subjective Progress Note Date: 10/30/22 Principal diagnosis: Questionable mastoiditis Patient is a 77-year male with a past medical history significant for hypertension hyperlipidemia hypothyroidism GERD coronary disease and diabetes mellitus , presented to the hospital with pain to the right side of the neck behind the ear and there was question of possible mastoiditis. On today's evaluation that is 10/30/2022, the patient remains to be afebrile, the patient pain to the neck area has decreased in intensity and the patient mentioned he was unable to have a good night's sleep last night the patient denies having a problem with a hearing or any drainage from the right ear no nausea no vomiting no abdominal pain no diarrhea Objective - Vital Signs Vital signs: Vital Signs Temp 97.6 F 10/30/22 08:00 Pulse 61 10/30/22 08:00 Resp 18 10/30/22 08:00 BP 166/81 10/30/22 08:00 Pulse Ox 98 10/30/22 08:00 FiO2 Intake & Output 10/29/22 10/30/22 10/30/22 18:59 06:59 18:59 Intake Total 1560 118 Balance 1560 118 Intake: Oral 1560 118 Other: Voiding Method Toilet Toilet # Voids 1 3 - Exam GENERAL DESCRIPTION: An elderly male lying in bed in no distress RESPIRATORY SYSTEM: Unlabored breathing , decreased breath sounds at bases HEART: S1 S2 regular rate and rhythm , ABDOMEN: Soft , no tenderness EXTREMITIES: No edema feet - Labs CBC & Chem 7: 10/27/22 14:41 10/27/22 14:41 Labs: Abnormal Lab Results - Last 24 Hours (Table) 10/29/22 10/29/22 Range/Units 17:39 20:42 POC Glucose (mg/dL) 232 H 252 H (70-110) mg/dL Assessment and Plan (1) Mastoid pain Status: Acute Code(s): H92.09 - OTALGIA, UNSPECIFIED EAR SNOMED Code(s): 356645624 Plan: 1patient presented to hospital with pain mostly to the right posterior auricular and occipital area symptom has been going on for more than 2 weeks now without any history of any trauma patient did not have any tenderness he did have a CT of the internal auditory canal did not show any evidence of acute infection/mastoiditis patient with no fever no white count did have a normal CRP and sed rate of we will make infection etiology to be less likely and need to ru le out other etiology of cephalgia 2-patient pain is mostly to the posterior neck and right side of the neck comparing to the mastoid itself and there is no evidence of any tenderness to that location patient did have 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
--- NOTE | 2022-10-30 19:09 | P.DS ---
Providers Date of admission: 10/28/22 12:37 Expected date of discharge: 10/30/22 Attending physician: Malik Mary Consults: 10/28/22 10:19 Consult Physician Urgent Consulting Provider: Tad Lehman Consult Reason/Comments: right mastoid pain Do you want consulting provider notified?: Yes Consult Physician Urgent Consulting Provider: Miri Reilly Consult Reason/Comments: ? mastoid, infection, pain right Do you want consulting provider notified?: Yes 10/28/22 13:43 Consult Physician Urgent Consulting Provider: Galo Madsen Consult Reason/Comments: right mastoid pain, headaches Do you want consulting provider notified?: Yes Primary care physician: Abhishek Castillo MD Hospital Course: Presenting complaint: Right-sided upper neck and headache Hospital course: This is a 77-year-old male with a past medical history including diabetes and previously diagnosed a mild mastoiditis presented to the emergency department for continued pain in the right side of his head behind his ear. The patient stated that he was given oral antibiotics and did see his primary care physician one week ago without any improvement. The patient stated that he has continued pain and discomfort especially while laying down and try to go to sleep. The patient denied any fevers, chills as well as any lightheadedness or dizziness. The patient was seen in bed comfortably without any acute distress. 10/29/2022: I assumed care of the patient today from [facility]. Patient is complaining pain at the hairline upper part of the right side of the neck. Describes the pain to be worse when lying down and then it extends and radiates to the above the ear and lower down. It is much worse when he lies down. Better with pain medications. No fever no chills. Radiological studies did not show any mastoiditis. Had been on antibiotics. To me this looks more like a pinched nerve as it is very positional. Patient's had his x-rays done showing evidence of cervical arthritis. I will give patient a course of anti- inflammatory form of NSAIDs and prednisone. expect to have feeling better. Neurologic also working up the patient. 10/30/2022: Patient's left much better last night with prednisone and naproxen. MRI results discussed with the patient. Several questions answered. We'll send the patient home on a tapering dose of prednisone and naproxen. [place] to be muscular neurological from pinched nerve.. Other workup has been negative. Clinical evidence of infection. No antibiotics. Discussion and discharge planning more than 35 minutes On examination: VITAL SIGNS: [97.6, 61, 18, 1 66 x 81, 98% room air GENERAL APPEARANCE:, comfortable. HEENT: Normal external appearance of nose and ear. Oral cavity normal. Mild Point tenderness on the extreme right of the hairline at the occipital line, just above the cervical spine. EYES: Pupils equal. Conjunctiva normal. NECK: JVD not raised. Mass not palpable. RESPIRATORY: Respiratory effort normal. Lungs clear to auscultation. CARDIOVASCULAR: First and second sounds normal. No edema. ABDOMEN: Soft. Liver and spleen not palpable. No tenderness. No mass palpable. PSYCHIATRY: Alert and oriented x3. Mood and affect normal. INVESTIGATIONS, reviewed in the clinical context: MRI brain unremarkable. Chronic changes Computed tomography scan internal auditory canal with contrast: no Evidence of mastoiditis. Single opacified right mastoid air cell-unchanged Assessment plan: -Right occipital hairline localized pain with radiation especially positional laying down. At night. This appears to be nerve pinching probably from upper cervical spine/lesser occipital - C2/C3. Spondylotic naproxen prednisone. DC on prednisone taper and 5 daysof naproxen. No evidence of infection.. -CAD with stent Aspirin. Zocor. Imdur ER -GERD Omeprazole -Diabetes mellitus type 2 Glucophage, Amaryl. Follow sliding scale -Hyperlipidemia Zocor -BPH Flomax -Hypothyroid Levothyroxine 50 g Disposition: Home Patient Condition at Discharge: Stable Plan - Discharge Summary New Discharge Prescriptions: New Naproxen [Naprosyn] 250 mg PO TID #15 tab predniSONE 0 mg PO DIRECTED #22 tab Continue metFORMIN HCL [Glucophage] 1,000 mg PO AC-BID Glimepiride [Amaryl] 1 mg PO AC-BRKFST Nateglinide [Starlix] 120 mg PO AC-LUNCH Tamsulosin [Flomax] 0.4 mg PO HS Levothyroxine Sodium [Synthroid] 50 mcg PO HS Omeprazole 20 mg PO AC-BRKFST Isosorbide Mononitrate ER [Imdur] 30 mg PO DAILY 60 Days #60 tab.er.24h Nitroglycerin Sl Tabs [Nitrostat] 0.4 mg SUBLINGUAL Q5M PRN 60 Days #60 tab PRN Reason: Chest Pain Aspirin EC [Ecotrin Low Dose] 81 mg PO DAILY Acetaminophen-Codeine 300-30mg [Tylenol w/codeine #3] 1 tab PO Q6H Glimepiride [Amaryl] 1.5 mg PO AC-SUPPER Nateglinide [Starlix] 60 - 120 mg PO HS PRN PRN Reason: Blood Sugar - High Simvastatin [Zocor] 40 mg PO DAILY Discontinued Ciprofloxacin HCl [Cipro] 500 mg PO BID Discharge Medication List Glimepiride [Amaryl] 1 mg PO AC-BRKFST 09/23/17 [History] Levothyroxine Sodium [Synthroid] 50 mcg PO HS 09/23/17 [History] Nateglinide [Starlix] 120 mg PO AC-LUNCH 09/23/17 [History] Omeprazole 20 mg PO AC-BRKFST 09/23/17 [History] Tamsulosin [Flomax] 0.4 mg PO HS 09/23/17 [History] metFORMIN HCL [Glucophage] 1,000 mg PO AC-BID 09/23/17 [History] Isosorbide Mononitrate ER [Imdur] 30 mg PO DAILY 60 Days #60 tab.er.24h 09/25/17 [Rx] Nitroglycerin Sl Tabs [Nitrostat] 0.4 mg SUBLINGUAL Q5M PRN 60 Days #60 tab 09/25/17 [Rx] Acetaminophen-Codeine 300-30mg [Tylenol w/codeine #3] 1 tab PO Q6H 10/27/22 [History] Aspirin EC [Ecotrin Low Dose] 81 mg PO DAILY 10/27/22 [History] Glimepiride [Amaryl] 1.5 mg PO AC-SUPPER 10/27/22 [History] Nateglinide [Starlix] 60 - 120 mg PO HS PRN 10/27/22 [History] Simvastatin [Zocor] 40 mg PO DAILY 10/27/22 [History] Naproxen [Naprosyn] 250 mg PO TID #15 tab 10/30/22 [Rx] predniSONE 0 mg PO DIRECTED #22 tab 10/30/22 [Rx] Follow up Appointment(s)/Referral(s): Abhishek Castillo MD [Primary Care Provider] - 1-2 days Patient Instructions/Handouts: Earache (GEN) Discharge Disposition: HOME SELF-CARE
== END 2022-10-30 12:50 | disposition home or self-care (01) ==
LOC: EC 13:00 → 6NMEDSUR 15:36 → INTOOBSV 10-28 12:37 → OBSVTOIN 10-28 12:37 → UNDODISIN 10-30 12:50
PROVIDERS: ADMIT Hospitalist; ATTEND Hospitalist
DX: R51.9 Headache, unspecified (principal); E11.9 Type 2 diabetes mellitus without complications; E78.5 Hyperlipidemia, unspecified; I25.10 Atherosclerotic heart disease of native coronary artery without angina pectoris; D64.9 Anemia, unspecified; I10 Essential (primary) hypertension; E03.9 Hypothyroidism, unspecified; K21.9 Gastro-esophageal reflux disease without esophagitis; I67.2 Cerebral atherosclerosis; M47.812 Spondylosis without myelopathy or radiculopathy, cervical region; N40.0 Benign prostatic hyperplasia without lower urinary tract symptoms; M48.02 Spinal stenosis, cervical region; M50.323 Other cervical disc degeneration at C6-C7 level; Z79.890 Hormone replacement therapy; Z79.899 Other long term (current) drug therapy; Z79.84 Long term (current) use of oral hypoglycemic drugs; Z98.42 Cataract extraction status, left eye; Z98.41 Cataract extraction status, right eye; Z96.1 Presence of intraocular lens; Z82.49 Family history of ischemic heart disease and other diseases of the circulatory system; Z80.42 Family history of malignant neoplasm of prostate; Z95.5 Presence of coronary angioplasty implant and graft
CPT/HCPCS: 96376 ×2; 96366 ×2; 96367; 96372; 96375; 96365 ×2; 99285; 36415; 80053; 85652; 83735; 85025; 86140; 72052; 70481; 70553; G0378 ×3; J0696 ×3; J1650; J1885 ×3; J7512 ×2; Q9967; A9585

== ENCOUNTER → 2023-01-12 | Outpatient (CLI) | payer MEDICARE ==
--- NOTE | 2023-01-12 16:31 | CT ---
EXAMINATION TYPE: CT chest w con CT DLP: 299.9 mGycm, Automated exposure control for dose reduction was used. DATE OF EXAM: 01/12/2023 2:26 PM COMPARISON: CTA chest 09/23/2017 CLINICAL INDICATION:Male, 77 years old with history of R59.0 R93.8; PHH, enlarged lymph nodes TECHNIQUE: Multiple axial images were obtained through the chest following the administration of 100 cc of Isovue 300. . Coronal and sagittal reformats reviewed. FINDINGS: LUNGS/ PLEURA: No pleural effusion, pneumothorax, or focal consolidation. Stable 5 mm ground glass no dule along the right major fissure is favored to represent an intrafissural lymph node, consider inocencio gn. AIRWAY: Patent. Incidental right upper lobe tracheal bronchus. HEART: Mildly prominent in size. No pericardial effusion. MEDIASTINUM: Enlarged AP window lymph node measuring 1.0 cm short axis. Additional enlarged right hil ar lymph node measuring 1.1 cm short axis. These are stable dating back to 2009 and considered benign . VASCULATURE: No aortic aneurysm. MUSCULOSKELETAL: Mild disc degeneration changes are present throughout the thoracolumbar spine. No ac chanelle osseous abnormality. SOFT TISSUES/LYMPH NODES: Bilateral gynecomastia. LOWER NECK: No significant findings. UPPER ABDOMEN: Diffuse low-attenuation to the liver parenchyma. Nonobstructive right renal 5 mm calcu manan. Small hiatal hernia. IMPRESSION: 1. No acute thoracic process. 2. Stable mediastinal and right hilar lymph nodes seen back to 2018 and considered benign. 3. Nonobstructive right renal calculus.
== END | disposition home or self-care (01) ==
LOC: RADCTMAIN 13:37
PROVIDERS: ATTEND Otolaryngology
DX: R59.0 Localized enlarged lymph nodes (principal); R93.89 Abnormal findings on diagnostic imaging of other specified body structures; N20.0 Calculus of kidney
CPT/HCPCS: 82565; 84520; 71260; 36415; Q9967

== ENCOUNTER 2023-04-16 11:01 | Day surgery (SDC) | payer MEDICARE ==
[~2023-04-16 11:01] MED LIST: ASPIRIN 325 MG TAB PO PRN; SODIUM CHLORIDE 0.9% 1,000 ML in EMPTY BAG 1 BAG IV ONE
[2023-04-16 11:47] LABS: Glucose,Whole Blood 199 mg/dL (70-110)
[2023-04-16 12:08] VITALS: RESP 16
[2023-04-16] MEDS ORDERED: fentaNYL (PF) 50 MCG/ML 2 ML AMP ONE (12:14)
[2023-04-16] MEDS ORDERED: LIDOCAINE 1% INJ 10MG/ML (20 ML MDV) ONE (12:14)
[2023-04-16] MEDS ORDERED: fentaNYL (PF) 50 MCG/ML 2 ML AMP IVP ONE (12:26)
[2023-04-16] MEDS ORDERED: MIDAZOLAM 2 MG/2 ML VIAL IVP ONE (12:26)
[2023-04-16] MEDS ORDERED: LIDOCAINE 1% INJ 10MG/ML (30 ML VIAL-PF) SQ ONE (12:27)
[2023-04-16 12:47] LABS: African American GFR (CKD) >90 (>60 ml/min/1.73 sqM); Anion Gap 7 mmol/L; Blood Urea Nitrogen 20 mg/dL (9-20); Carbon Dioxide 27 mmol/L (22-30); Chloride 104 mmol/L (98-107); Glucose 193 mg/dL (74-99); Non-African American GFR(CKD) 83 (>60 ml/min/1.73 sqM); Potassium 4.6 mmol/L (3.5-5.1); Sodium 138 mmol/L (137-145)
[2023-04-16] MEDS ORDERED: CLOPIDOGREL 75 MG TAB ONE (12:51)
[2023-04-16] MEDS: HEPARIN SODIUM 1,000 UN/ML (10ML VL) IVP ONE ×3 (12:51→13:55)
[2023-04-16] MEDS ORDERED: CLOPIDOGREL 75 MG TAB PO ONE (12:54)
[2023-04-16 12:58] LABS: Basophils % (A) 0 %; Eosinophils # (A) 0.1 k/uL (0-0.7); Eosinophils % (A) 2 %; HCT 35.9 % (39.0-53.0); Lymphocytes # (A) 0.7 k/uL (1.0-4.8); Lymphocytes % (A) 18 %; MCH 28.1 pg (25.0-35.0); MCHC 33.5 g/dL (31.0-37.0); Mean Platelet Volume 7.7; Monocytes # (A) 0.3 k/uL (0-1.0); Monocytes % (A) 7 %; Neutrophils % (A) 72 %; Platelet Count 155 k/uL (150-450); RBC 4.27 m/uL (4.30-5.90); RDW 13.8 % (11.5-15.5); WBC 4.2 k/uL (3.8-10.6)
[2023-04-16] MEDS ORDERED: HEPARIN SODIUM 1,000 UN/ML (10ML VL) ONE (13:03)
[2023-04-16] MEDS ORDERED: IOPAMIDOL-370 100ML BTL INJ ONE ×2 (13:53→13:55)
--- NOTE | 2023-04-16 14:10 | P.PCN ---
Description of Procedure: PROCEDURES PERFORMED: Abdominal angiography with bilateral runoff, [employer] and Shockwave lithotripsy of left popliteal artery with a 5.0 x 60 balloon, DCB with a 6.0 x 40mm In.PACT balloon, IVUS left popliteal artery INDICATION: [place] class III symptoms, abnormal lower extremity ultrasound CONSENT:I have discussed the risks, benefits and alternative therapies for the above-mentioned procedure and for both sedation/analgesia as well as necessary blood product administration, if indicated, as they pertain to this patient. The patient has indicated understanding and acceptance of the risks and procedures discussed. PROCEDURE: After the risks, benefits and alternatives of the above mentioned procedure explained in detail with the patient, informed consent was obtained. Patient was taken to the catheterization lab and prepped and draped in usual fashion. 1% lidocaine was used to anesthetize the right femoral area. A 5- Malay sheath was placed in the right femoral artery using modified Seldinger technique. A 5-Malay pigtail catheter was inserted to the abdominal aorta and DSA imaging was obtained. Patient tolerated the diagnostic portion well. Next, the decision was made to perform intervention of left popliteal. IV heparin was given. A 6-Malay destination sheath was advanced from the right femoral into the left common femoral artery. A 0.035 stiff glide wire was used to cross the lesion. Balloon angioplasty was performed with a 4.0 balloon. Intravascular ultrasound showed diffuse calcification including the more proximal segment. Given diffuse lower extremity disease, recommended lithotripsy to prevent any distal embolization with atherectomy. Reference vessel proximally 5.0 to 5.5 mm. A 5.0 x 60 mm Shockwave was advanced and 5 runs of lithotripsy were performed at 4 brown. Repeat intravascular ultrasound shows continued significant plaque and therefore reintroduce the balloon and rep eat lithotripsy was performed at 8 and 10 brown. Repeated angiogram showed improved luminal gain. Therefore decision was made to perform drug-coated balloon angioplasty. A 6.0 x 40 mm In.PACT balloon was deployed at the distal left SFA into the P1 segment of the left popliteal artery for 3 minutes. Final angiograms were performed. Pre intervention there was 100% stenosis with significantly impaired flow. Post intervention there was 10% stenosis and uninhibited antegrade flow. A right femoral angiogram was performed and anatomoy was suitable for closure. A 6Fr Angioseal was placed with hemostasis achieved. The patient tolerated the procedure well. Patient was transported back to the post catheterization holding area in stable condition. Conscious Sedation: Patient was monitored under the direct supervision of vision of myself for conscious sedation using Versed and fentanyl for a total duration of 87 minutes Abdominal aorta: The abdominal aorta has mild calcifcation. Renal arteries were not imaged. There is no significant dissection or aneurysm. There is no significant stenosis. Right lower extremity: Right common iliac artery: There is no significant stenosis. Right external iliac artery: There is no significant stenosis. Right internal iliac artery: There is no significant stenosis. Right common femoral artery: There is no significant stenosis. Right profunda: There is no significant stenosis. Right SFA: There is no significant stenosis. Right popliteal artery: There is no significant stenosis. The right lower extremity appears to have 100% stenosis of the AT, PT and peroneal artery with collaterals filling the lower extremity. Left lower extremity: Left common iliac artery: There is no significant stenosis. Left external iliac artery: There is no significant stenosis. Left internal iliac artery: There is no significant stenosis. Left common femoral artery: There is no significant stenosis. Left profunda: There is no significant stenosis. Left SFA: There is no significant stenosis. Left popliteal artery: There is focal 100% proximal popliteal stenosis. Left tibioperoneal trunk: There is no significant stenosis. Left anterior tibial artery: There is 100% stenosis. Left posterior tibial artery: There is 90% stenosis. Left peroneal artery: There is 90% stenosis. FINAL IMPRESSION: 1. Peripheral arterial disease as described above including 100% right anterior tibial, posterior tibial, peroneal arteries, 100% left popliteal, 100% left AT, 90% posterior tibial and 90% peroneal artery stenoses. 2. S/p Shockwave lithotripsy of left popliteal artery with a 5.0 x 60 balloon, DCB with a 6.0 x 40mm In.PACT balloon PLAN: 1. Aggressive risk factor modification per most recent ACC/AHA guidelines. 2. Continue dual antiplatelets with aspirin and Plavix for 6 months.
[2023-04-16] MEDS ORDERED: Acetaminophen-Codeine 300-30mg TAB PO PRN (14:24)
[2023-04-16] MEDS ORDERED: NALOXONE 0.4 MG/ML 1 ML VIAL IVP PRN (14:25)
[2023-04-16] MEDS: hydrALAZINE HCL 20 MG/ML 1 ML VIAL IVP PRN ×2 (14:55→20:30)
[2023-04-16 16:26] LABS: Glucose,Whole Blood 164 mg/dL (70-110)
[2023-04-16] MEDS ORDERED: GLIMEPIRIDE 1 MG TAB PO SCH (17:30)
[2023-04-16 20:02] LABS: Glucose,Whole Blood 205 mg/dL (70-110)
[2023-04-16] MEDS ORDERED: ASPIRIN 81 MG PO SCH (21:00)
[2023-04-16] MEDS ORDERED: TAMSULOSIN 0.4 MG CAP.ER.24H PO SCH (21:00)
[2023-04-17 04:37] VITALS: TEMP 98.2
[2023-04-17 05:56] LABS: Glucose,Whole Blood 139 mg/dL (70-110)
[2023-04-17] MEDS ORDERED: LEVOTHYROXINE 50 MCG TAB PO SCH (06:30)
[2023-04-17] MEDS ORDERED: GLIMEPIRIDE 1 MG TAB PO SCH (07:30)
[2023-04-17] MEDS ORDERED: PANTOPRAZOLE 40 MG TABLET PO SCH (07:30)
[2023-04-17 08:08] VITALS: BP 144/60; PULSE 75
--- NOTE | 2023-04-17 08:13 | IR ---
EXAMINATION TYPE: IR well logging captain mud analysis femoral popliteal DATE OF EXAM: 04/16/2023 COMPARISON: NONE HISTORY: Fluoroscopy time. Fluoroscopy was provided to the referring clinician.
[2023-04-17] MEDS ORDERED: CLOPIDOGREL 75 MG TAB PO SCH (09:00)
[2023-04-17] MEDS ORDERED: LOSARTAN 25 MG TAB PO SCH (09:00)
[2023-04-17] MEDS ORDERED: ISOSORBIDE MONONITRATE ER 30 MG TAB.ER.24H PO SCH (09:00)
[2023-04-17 10:00] LABS: Basophils % (A) 1 %; Eosinophils # (A) 0.1 k/uL (0-0.7); Eosinophils % (A) 2 %; HCT 37.5 % (39.0-53.0); HGB 12.5 gm/dL (13.0-17.5); Lymphocytes # (A) 0.7 k/uL (1.0-4.8); Lymphocytes % (A) 14 %; MCH 28.4 pg (25.0-35.0); MCHC 33.3 g/dL (31.0-37.0); MCV 85.3 fL (80.0-100.0); Mean Platelet Volume 7.8; Monocytes # (A) 0.3 k/uL (0-1.0); Monocytes % (A) 6 %; Neutrophils # (A) 3.7 k/uL (1.3-7.7); Neutrophils % (A) 76 %; Platelet Count 175 k/uL (150-450); RBC 4.39 m/uL (4.30-5.90); RDW 14.1 % (11.5-15.5); WBC 4.8 k/uL (3.8-10.6)
[2023-04-17 10:07] LABS: African American GFR (CKD) 87 (>60 ml/min/1.73 sqM); Anion Gap 7 mmol/L; Blood Urea Nitrogen 18 mg/dL (9-20); Calcium 9.1 mg/dL (8.4-10.2); Carbon Dioxide 25 mmol/L (22-30); Chloride 102 mmol/L (98-107); Glucose 187 mg/dL (74-99); Non-African American GFR(CKD) 75 (>60 ml/min/1.73 sqM); Potassium 4.1 mmol/L (3.5-5.1); Sodium 134 mmol/L (137-145)
[2023-04-17] MEDS ORDERED: ATORVASTATIN 20 MG TAB PO SCH (13:30)
--- NOTE | 2023-04-17 21:25 | P.DS ---
Providers Attending physician: Roc العراقي DO Primary care physician: Abhishek Castillo MD Hospital Course: Patient is a pleasant 77-year-old male who has been having claudication symptoms with left calf pain with exertion and underwent outpatient workup with ultrasound showing left popliteal stenosis. His symptoms were like self- limiting and therefore initially had tried walking program and medical therapy however still affecting his quality of life and elected to perform angiogram with possible intervention. Patient underwent abdominal angiogram with lower extremity runoff 04/16 which showed a left popliteal obstructive disease which was heavily calcified. He underwent successful shockwave lithotripsy angioplasty and drug coated balloon angioplasty of the P1 popliteal segment 04/16/2023 from a right femoral approach. He was noted to have some hypertension and given his diabetes recommended starting losartan. On 04/17 he was hemodynamically stable with no hematoma in the right femoral site and appeared stable for discharge with outpatient follow-up. Plan - Discharge Summary Discharge Rx Participant: No New Discharge Prescriptions: New Losartan [Cozaar] 25 mg PO DAILY #90 tab Clopidogrel [Plavix] 75 mg PO DAILY #90 tab No Action metFORMIN HCL [Glucophage] 1,000 mg PO AC-BID Glimepiride [Amaryl] 1 mg PO AC-BRKFST Nateglinide [Starlix] 120 mg PO AC-LUNCH Tamsulosin [Flomax] 0.4 mg PO HS Levothyroxine Sodium [Synthroid] 50 mcg PO QAM Omeprazole 20 mg PO AC-BRKFST Nitroglycerin Sl Tabs [Nitrostat] 0.4 mg SUBLINGUAL Q5M PRN 60 Days #60 tab PRN Reason: Chest Pain Aspirin EC [Ecotrin Low Dose] 81 mg PO HS Acetaminophen-Codeine 300-30mg [Tylenol w/codeine #3] 1 tab PO Q6H PRN PRN Reason: Pain Glimepiride [Amaryl] 1.5 mg PO AC-SUPPER Isosorbide Mononitrate ER [Imdur] 30 mg PO QAM Nateglinide [Starlix] 60 - 120 mg PO HS PRN PRN Reason: Blood Sugar - High Simvastatin [Zocor] 40 mg PO PC-LUNCH Discharge Medication List Glimepiride [Amaryl] 1 mg PO AC-BRKFST 09/23/17 [History] Levothyroxine Sodium [Synthroid] 50 mcg PO QAM 09/23/17 [History] Nateglinide [Starlix] 120 mg PO AC-LUNCH 09/23/17 [History] Omeprazole 20 mg PO AC-BRKFST 09/23/17 [History] Tamsulosin [Flomax] 0.4 mg PO HS 09/23/17 [History] metFORMIN HCL [Glucophage] 1,000 mg PO AC-BID 09/23/17 [History] Nitroglycerin Sl Tabs [Nitrostat] 0.4 mg SUBLINGUAL Q5M PRN 60 Days #60 tab 09/25/17 [Rx] Acetaminophen-Codeine 300-30mg [Tylenol w/codeine #3] 1 tab PO Q6H PRN 10/27/22 [History] Aspirin EC [Ecotrin Low Dose] 81 mg PO HS 10/27/22 [History] Glimepiride [Amaryl] 1.5 mg PO AC-SUPPER 10/27/22 [History] Nateglinide [Starlix] 60 - 120 mg PO HS PRN 10/27/22 [History] Simvastatin [Zocor] 40 mg PO PC-LUNCH 10/27/22 [History] Isosorbide Mononitrate ER [Imdur] 30 mg PO QAM 04/09/23 [History] Clopidogrel [Plavix] 75 mg PO DAILY #90 tab 04/17/23 [Rx] Losartan [Cozaar] 25 mg PO DAILY #90 tab 04/17/23 [Rx] Follow up Appointment(s)/Referral(s): Roc العراقي DO [STAFF PHYSICIAN] - 04/24/23 2:45 pm (Appointment is at [facility] next to [place]) Patient Instructions/Handouts: Peripheral Vascular Disease (DC), Moderate Sedation (DC), After Radial Heart Catheterization (GEN) Discharge Disposition: HOME SELF-CARE
== END 2023-04-17 11:10 | disposition home or self-care (01) ==
LOC: CATHCVL 11:01 → 3SCARD 13:53 → CATHCVL 04-17 11:10
PROVIDERS: ATTEND Internal Medicine
DX: I70.213 Atherosclerosis of native arteries of extremities with intermittent claudication, bilateral legs (principal); I25.10 Atherosclerotic heart disease of native coronary artery without angina pectoris; I10 Essential (primary) hypertension; E78.5 Hyperlipidemia, unspecified; E11.9 Type 2 diabetes mellitus without complications; Z79.84 Long term (current) use of oral hypoglycemic drugs; Z79.82 Long term (current) use of aspirin; Z79.899 Other long term (current) drug therapy; Z79.890 Hormone replacement therapy; Z79.02 Long term (current) use of antithrombotics/antiplatelets
CPT/HCPCS: 37252; 80048 ×2; 85025 ×2; C1769 ×5; C1760; C1894 ×2; C1725 ×2; C1753; C2623; C9764; J2250; J0360; J2001; J3010; J1644; Q9967

== ENCOUNTER → 2024-10-21 | Outpatient (CLI) | payer MEDICARE ==
--- NOTE | 2024-10-21 10:41 | MR ---
EXAMINATION TYPE: MR Prostate wo/w con DATE OF EXAM: 10/21/2024 7:54 AM COMPARISON: None. CLINICAL INDICATION: Male, 79 years old with history of R97.20 ELEVATED PROSTATE SPECIFIC ANTIGEN [PS A]; High PSA - 11/24/14 1.36, 12/07/21 4.17, 08/09/24 5.14 TECHNIQUE: Multi-planar, multi-sequence imaging of the pelvis is performed prior to and following the uncomplicated administration of bolus intravenous gadolinium. IV Contrast: 7ml mL Gadobutrol Interpretive Criteria: PI-RADS v2.1 SERUM PSA: 11/24/14 1.36, 12/07/21 4.17, 08/09/24 5.14 SURGICAL PATHOLOGY: No data available. FINDINGS: Prostatic dimensions: 5.2 x 6.1 x 3.8 cm. Ellipsoid Volume:63.11 (PSA density=0.08 ng/mL/mL) CENTRAL GLAND (Central and Transition Zones/CZ+TZ): Multiple bilateral, heterogenous appearing hypertrophic stromal nodules, without suspicious lesion. M edian lobe hypertrophy with protrusion into the base of the bladder. (PI-RADS 2) PERIPHERAL ZONE (PZ): Bilateral linear, indistinct wedgelike areas of low ADC, and low T2 signal, No evidence of masslike a bnormality, or localized perfusional hypervascularity, to further suggest a focus of clinically signi ficant prostate cancer. (PI-RADS 2) SEMINAL VESICLES (SV): Symmetric and unremarkable. PERIPROSTATIC TISSUES: Unremarkable. LYMPH NODES: No enlarged pelvic lymph node. REMAINING PELVIS: Circumferential bladder wall thickening with trabeculations likely secondary to chronic bladder outfl ow obstruction. A few bladder diverticula are present No abnormal free or organized intrapelvic fluid collection. No pathologic bowel dilation or mural thickening. No hernia visualized OSSEOUS STRUCTURES: No suspicious osseous abnormality. IMPRESSION: 1. No specific features for high-risk prostate cancer. Maximum PI-RADS score: 2. 2. Moderate BPH, estimated gland volume 63.11 mL. 3. No suspicious osseous lesion. No lymphadenopathy. No evidence of prostate adenocarcinoma involving the periprostatic tissues. 4. Trabeculated bladder pepe with bladder diverticula likely secondary to chronic bladder outlet obs truction. [facility], , 10/21/2024 10:39 AM
== END | disposition home or self-care (01) ==
LOC: RADMRIMAIN 06:41
PROVIDERS: ATTEND Urology
DX: N40.0 Benign prostatic hyperplasia without lower urinary tract symptoms (principal); R97.20 Elevated prostate specific antigen [PSA]; N32.3 Diverticulum of bladder
CPT/HCPCS: 72197; A9585